=== PATIENT | female | born 1965 | race Caucasian/White ===

== ENCOUNTER 2024-01-10 16:46 | Emergency (ER) | payer BC ==
[~2024-01-10] VITALS: Ht 160 cm; Wt 81.6 kg
[2024-01-10] MEDS ORDERED: NA PHOS,M-B/NA PHOS,DI-BA 1 EA ENEMA RC ONE (17:34)
[2024-01-10] MEDS: NA PHOS,M-B/NA PHOS,DI-BA 1 EA ENEMA RC ONE (17:45)
[2024-01-10] MEDS: MAGNESIUM CITRATE 296 ML BOTTLE PO ONE (17:46)
[2024-01-10 17:50] VITALS: BP 137/73; TEMP 98.4; O2SAT 99
== END 2024-01-10 17:56 | disposition home or self-care (01) ==
LOC: ER 16:56
DX: K59.00 Constipation, unspecified (principal); I10 Essential (primary) hypertension; F31.9 Bipolar disorder, unspecified; F41.9 Anxiety disorder, unspecified; F19.10 Other psychoactive substance abuse, uncomplicated; Z88.8 Allergy status to other drugs, medicaments and biological substances